=== PATIENT | male | born 1955 | race American Indian/Alaskan Native ===

== ENCOUNTER 2016-10-07 08:22 | Day surgery (SDC) | payer MEDICAID ==
[~2016-10-07 08:22] MED LIST: NACL 0.9% 1000 ML 1,000 ML IV SCH
[2016-10-07] MEDS ORDERED: ANCEF/STERILE WATER 2 GM/20 ML 2 GM/20 ML SYRINGE IV NR (09:00)
[2016-10-07 09:53] LABS: Basophils % (Auto) 1.1 % (0.0-1.8); Eosinophils % (Auto) 11.3 % (0.0-4.3); Hematocrit 30.4 % (35.5-45.6); Mean Corpuscular HGB Conc 33 % (32-34); Mean Corpuscular Hemoglobin 30 pg (28-32); Mean Corpuscular Volume 91 fl (84-94); Platelet Count 208 K/mm3 (140-440); Red Blood Count 3.33 M/mm3 (3.65-5.03); Red Cell Distribution Width 14.6 % (13.2-15.2); White Blood Count 5.9 K/mm3 (4.5-11.0)
[2016-10-07 10:04] LABS: BUN/Creatinine Ratio 11.11; Calcium 9.5 mg/dL (8.4-10.2); Chloride 105.4 mmol/L (98-107)
[2016-10-07 10:33] LABS: INR 1.06 (0.87-1.13)
[2016-10-07 10:35] LABS: Partial Thromboplastin Time 30.7 Sec. (24.2-36.6)
--- NOTE | 2016-10-07 11:28 | Short Stay Summary ---
Short Stay Documentation Date of service: 10/07/16 - History Principal diagnosis: Prostate cancer Past Medical History: cancer, other (bilateral hydronephrosis) Past Surgical History: Other (B neph tubes, superpubic cath) Social history: no significant social history - Allergies and Medications Current Medications: Allergies No Known Allergies Allergy (Verified 09/01/16 15:33) Home Medications Medication Instructions Recorded Confirmed Last Taken Type Bicalutamide [Casodex] 50 mg PO DAILY 10/07/16 10/07/16 10/06/16 History Calcitriol [Rocaltrol] 0.25 mg PO DAILY 10/07/16 10/07/16 10/06/16 History HYDROcodone/APAP 5-325 [Rufe 1 tab PO Q4HR PRN 10/07/16 10/07/16 10/06/16 History 5-325 mg TAB] Active Medications Cefazolin Sodium (Ancef/Sterile Water 2 Gm/20 Ml) 2 gm in 20 mls @ 80 mls/hr IV PREOP NR PRN Reason: Protocol Stop: 10/07/16 15:00 Sodium Chloride (Nacl 0.9% 1000 Ml) 1,000 mls @ 42 mls/hr IV DIRECT SASHA Stop: 10/07/16 15:00 - Physical exam General appearance: no acute distress Lungs: Normal air movement Breasts: deferred Heart: Regular rate Gastrointestinal: normal Male Genitourinary: deferred Rectal Exam: deferred Extremities: no ischemia Neurological: Normal gait, Normal speech - Brief post op/procedure progress note Date of procedure: 10/07/16 Pre-op diagnosis: Malfunctioning nephrostomy tubes Post-op diagnosis: same Procedure: Exchange to bilateral neph tubes Anesthesia: local Surgeon: ALETHA WALKER Estimated blood loss: minimal Pathology: none Condition: stable - Disposition Condition at discharge: Fair Disposition: DC-01 TO HOME OR SELFCARE Short Stay Discharge Plan Activity: advance as tolerated Weight Bearing Status: Weight Bear as Tolerated Diet: regular Wound: keep clean and dry, per your surgeon's advice Follow up with: REED MACHUCA MD [Primary Care Provider] - 7 Days CARLOS SORIANO MD [Staff Physician] - 7 Days
[2016-10-07] MEDS ORDERED: HEPARIN/NS 5000 UNIT/500ML(CATH LAB) 0 ML IR ONE (11:51)
[2016-10-07] MEDS ORDERED: NACL 0.9% 250ML 250 ML ONE (11:52)
[2016-10-07] MEDS ORDERED: HEPARIN 10,000 UNITS/10 ML ONE (11:52)
[2016-10-07] MEDS ORDERED: ANCEF/STERILE WATER 2 GM/20 ML 0 GM/0 ML SYRINGE IV ONE (11:52)
[2016-10-07] MEDS ORDERED: SUBLIMAZE ONE (11:52)
[2016-10-07] MEDS ORDERED: VERSED ONE (11:52)
[2016-10-07] MEDS ORDERED: XYLOCAINE 2% INFILTRATI ONE (11:52)
[2016-10-07] MEDS ORDERED: NACL 0.9% 500 ML 500 ML ONE (12:22)
[2016-10-07] MEDS ORDERED: LEVAQUIN 500MG/100ML 500 MG/100 ML BAG IV ONE (12:22)
[2016-10-07 13:32] VITALS: BP 121/69
--- NOTE | 2016-10-07 15:16 | Operative Report ---
Operative Report Operative Report: EXAM: FLUOROSCOPIC GUIDED EVALUATION OF INDWELLING NEPHROSTOMY TUBES, EXCHANGE OF INDWELLING NEPHROSTOMY TUBES, ULTRASOUND-GUIDED INSERTION OF IV CLINICAL INDICATION: PATIENT WITH METASTATIC PROSTATE CANCER AND MALFUNCTIONING NEPHROSTOMY TUBES DATE: 10/07/2016 PROCEDURE: Following an expiration of the risks, benefits and alternatives; written informed consent was obtained. The patient was brought to the angiographic suite and placed in supine position on the stretcher. The patient' s left arm was prepped and draped in the usual sterile fashion. Under ultrasound guidance, the left brachial vein was cannulated with a 7 cm 21-gauge needle. A 0.018 guidewire was advanced centrally. The needle was removed and the inner portion of a micro-puncture sheath was advanced over the guidewire. The guidewire was then removed. The catheter was securely fasten the skin surface to surface and IV during procedures. The patient was then moved to the cardiac catheterization table and placed in the prone position. The patient's back and indwelling nephrostomy tubes were prepped and draped in the usual sterile fashion. 1% lidocaine was used for anesthesia at the catheter exit site. Left: Initial fluoroscopic images demonstrated coiling of the nephrostomy tube with what appears to be some retraction. Contrast was injected through the indwelling nephrostomy tube which demonstrates at nephrostomy tube has been retracted into the distal aspect of a inferior calyx. The catheter was cut to release the pigtail and a 0.035 guidewire advanced through the nephrostomy tube into the renal pelvis. The nephrostomy tubes then removed intact. A 4 Scottish vertebral catheter was then advanced over the guidewire and together the guidewire and catheter were advanced of the proximal ureter. The catheter was removed. A new 8 [place] nephrostomy tube was then placed over the guidewire and advanced to position the pigtail within the renal pelvis. The guidewire and trocar were removed. Contrast was injected to document appropriate positioning. Right: Initial fluoroscopic images demonstrating appropriate positioning of the nephrostomy tube. Contrast was injected through the indwelling nephrostomy tube which demonstrates a nephrostomy tube is within the renal pelvis and a decompressed kidney. The catheter was cut to release the pigtail and a 0.035 guidewire advanced through the nephrostomy tube internal renal pelvis. The nephrostomy tube was then removed intact. A new a fresh nephrostomy tube was then advanced over the guidewire and advanced to position the pigtail within the renal pelvis. The guidewire and trocar were removed. Contrast was injected to document appropriate positioning. Both catheters were securely fasten the skin surface using 2-0 Ethilon suture and sterile dressings were then applied. The catheters were then placed to dependent drainage. The patient tolerated the procedures well. There were no immediate post procedure complications. Conscious sedation was performed under the guidance of radiologic nursing. Continuous cardiopulmonary monitoring was utilized. IMPRESSION: 1) Fluoroscopic guided evaluation of indwelling nephrostomy tubes demonstrating retraction of the left nephrostomy tube the most distal aspect of a inferior calyx. 2) Fluoroscopic guided exchange of bilateral nephrostomy tubes.
--- NOTE | 2016-10-08 10:27 | Vascular Lab Report ---
MISCELLANEOUS VESSEL IDENTIFICATION: COMMENTS ON THE SCAN: The left brachial vein was identified and under real-time ultrasound guidance was cannulated. IMPRESSION: Successful ultrasound guided vein cannulation.
== END 2016-10-07 15:05 | disposition home or self-care (01) ==
LOC: CATHLABREC 08:22
PROVIDERS: ATTEND Radiology Diagnostic Radiology
DX: T83.89XA Other specified complication of genitourinary prosthetic devices, implants and grafts, initial encounter (principal); Y83.8 Other surgical procedures as the cause of abnormal reaction of the patient, or of later complication, without mention of misadventure at the time of the procedure; C79.82 Secondary malignant neoplasm of genital organs; Z79.01 Long term (current) use of anticoagulants
CPT/HCPCS: 36415; 50435; 76937; 80048; 85025; 85610; 85730; C1729; C1751; C1769; J1956; J2250; J3010; J7030; J7040; J7050; J0690; J1644; Q9967

== ENCOUNTER 2017-02-01 08:16 | Day surgery (SDC) | payer MEDICAID ==
[~2017-02-01 08:16] MED LIST changes: +ANCEF/STERILE WATER 2 GM/20 ML 2 GM/20 ML SYRINGE IV NR
[2017-02-01 09:35] LABS: INR 1.03 (0.87-1.13)
[2017-02-01 09:36] LABS: Partial Thromboplastin Time 33.1 Sec. (24.2-36.6)
[2017-02-01 09:42] LABS: Hematocrit 26.1 % (35.5-45.6); Hemoglobin 8.4 gm/dl (11.8-15.2); Mean Corpuscular HGB Conc 32 % (32-34); Mean Corpuscular Hemoglobin 30 pg (28-32); Mean Corpuscular Volume 93 fl (84-94); Red Blood Count 2.82 M/mm3 (3.65-5.03); White Blood Count 8.3 K/mm3 (4.5-11.0)
[2017-02-01 09:43] LABS: Eosinophils % (Auto) 3.1 % (0.0-4.3); Platelet Count 355 K/mm3 (140-440); Red Cell Distribution Width 13.5 % (13.2-15.2)
[2017-02-01 09:48] LABS: Calcium 10.2 mg/dL (8.4-10.2); Chloride 96.6 mmol/L (98-107); Potassium 4.7 mmol/L (3.6-5.0)
[2017-02-01] MEDS ORDERED: VERSED ONE (10:27)
[2017-02-01] MEDS ORDERED: NACL 0.9% 500 ML IR ONE (10:27)
[2017-02-01] MEDS ORDERED: LEVAQUIN 500MG/100ML 500 MG/100 ML BAG IV ONE (10:27)
[2017-02-01] MEDS: SUBLIMAZE ONE ×2 (10:47→11:02)
[2017-02-01] MEDS: XYLOCAINE 2% INFILTRATI ONE ×2 (10:50→11:04)
[2017-02-01] MEDS ORDERED: NACL 0.9% 500 ML 500 ML IV SCH (11:00)
--- NOTE | 2017-02-01 11:27 | Operative Report ---
Operative Report Operative Report: Procedure: 1. Bilateral antegrade nephrostograms 2. Bilateral nephrostomy tube exchange Date of Procedure: 02/01/2017 History/Indication: 61-year-old male with obstructive uropathy. He is here for routine bilateral nephrostomy tube exchange Physician: Anel Lomax MD Technique/Procedural Details: The patient was placed in the prone position and prepped and draped in the usual sterile fashion. A timeout was performed. 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 Local anesthetic was administered around both the catheter exit sites. Contrast was injected into the left indwelling nephrostomy tube to document positioning. The catheter and sutures were cut. The left indwelling catheter was then exchanged over a Rivas wire for a 4 [place] vertebral catheter. The vertebral catheter was used to guide the Rivas wire into the distal ureter. The vertebral catheter was then exchanged for a new 8 [place] nephrostomy catheter. The locking loop was formed, flushing and aspiration was performed, and the catheter was sutured to the skin with 2-0 Ethilon suture. A gravity drainage bag was then attached to the catheter. The right nephrostomy catheter was exchanged in a similar fashion, except a Glidewire was used to pass the vertebral catheter into the distal ureter. Discussion: There is successful bilateral nephrostomy tube exchange. Both newly placed catheters fill and decompress the collecting system adequately. There is no significant hydronephrosis. Bilateral indwelling nephroureteral stents are in place, and injected contrast can be seen traversing through the ureter and collecting in the bladder. A suprapubic catheter is also in place. Specimen: None EBL: <5 cc
[2017-02-01] MEDS ORDERED: NORCO 7.5/325 PO ONE (11:51)
[2017-02-01 14:35] VITALS: BP 107/64
== END 2017-02-01 14:50 ==
LOC: CATHLABREC 08:16
PROVIDERS: ATTEND Radiology Diagnostic Radiology
DX: N13.9 Obstructive and reflux uropathy, unspecified (principal); Z79.01 Long term (current) use of anticoagulants
CPT/HCPCS: 36415; 50435; 80048; 85025; 85610; 85730; 99156; 99157; C1729; C1751; C1769; J1956; J2250; J3010; J7040; Q9967